=== PATIENT | female | born 1990 | race Caucasian/White ===

== ENCOUNTER 2016-05-09 17:43 | Emergency (ER) | payer MEDICAID, OTHER ==
[2016-05-09 17:53] VITALS: BP 122/81
[2016-05-09 18:42] LABS: Urine Bilirubin 1 mg/dl (NEGATIVE); Urine Blood Negative /ul (NEGATIVE); Urine Ketone Negative (NEGATIVE); Urine Nitrite Negative (NEGATIVE); Urine Protein Negative (NEGATIVE); Urine Specific Gravity 1.025 SP.GR. (1.005-1.010); Urine Urobilinogen Normal (NORMAL)
[2016-05-09 18:57] LABS: Urine Appearance Clear; Urine Bacteria TRACE; Urine Color Dark Yellow; Urine RBC None Seen /hpf (0-5); Urine WBC None Seen /hpf (0-5)
[2016-05-09] MEDS ORDERED: NORMAL SALINE 1,000 ML IV ONE (18:57)
[2016-05-09] MEDS ORDERED: ONDANSETRON HCL/PF 2 MG/ML VIAL IV ONE (18:57)
[2016-05-09] MEDS ORDERED: ONDANSETRON HCL/PF 2 MG/ML VIAL ONE (19:07)
--- NOTE | 2016-05-09 19:25 | ERNOTE ---
Medical Problem HPI - Narrative Date of Service: 05/09/16 - General Chief Complaint: Nausea/Vomiting Time Seen by Provider: 05/09/16 18:56 Source: patient, RN/MD, RN notes reviewed Exam Limitations: no limitations - Immun/Allergies/Home Medications Immunizations: IMMUNIZATION HX Immunizations Up to Date Yes Allergies/Adverse Reactions: Allergies azithromycin Allergy (Intermediate, Verified 05/09/16 17:53) Hives clindamycin Allergy (Intermediate, Verified 05/09/16 17:53) Hives erythromycin base [Erythromycin Base] Allergy (Intermediate, Verified 05/09/16 17:53) Itching penicillin G Allergy (Intermediate, Verified 05/09/16 17:53) Itching rash Sulfa (Sulfonamide Antibiotics) [Sulfa(Sulfonamide Antibiotics)] Adverse Reaction (Intermediate, Verified 05/09/16 17:53) Nausea states is violent upset stomach codeine [Codeine] Adverse Reaction (Mild, Verified 05/09/16 17:53) Nausea Home Medications: HOME MEDICATIONS ALPRAZolam [Xanax] 0.5 mg PO BID PRN 02/21/15 [Last Taken Unknown] Escitalopram Oxalate [Lexapro] 10 mg PO DAILY 02/21/15 [Last Taken 02/23/15] Bupropion HCl [Wellbutrin Sr] 100 mg PO DAILY 05/09/16 [Last Taken Unknown] Topiramate [Topamax] 25 mg PO BID 05/09/16 [Last Taken Unknown] - History of Present History Narrative: 25-year-old female ambulatory to the emergency department for nausea, vomiting and diarrhea that began yesterday. She initially presented to the walk-in clinic but was directed here after she reported feeling dehydrated. She denies sick contacts and has not taken anything for her symptoms. Date (Duration): 05/08/16 Review of Systems - Review of Systems Constitutional: Present: chills, fatigue, malaise. Absent: fever EYE: Present: no symptoms reported ENT: Present: no symptoms reported Respiratory: Absent: shortness of breath, cough Cardiology: Absent: chest pain, palpitations, syncope Gastrointestinal/Abdominal: Present: nausea, vomiting, diarrhea, abdominal pain , eating less, drinking less. Absent: constipation Genitourinary: Absent: frequency, dysuria Musculoskeletal: Present: muscle pain. Absent: neck pain Skin: Present: no symptoms reported Neurological: Present: dizziness/light-headedness. Absent: headache Endocrine: Present: no symptoms reported Hematologic/Lymphatic: Present: no symptoms reported Psych: Present: no symptoms reported - Patient's Past Medical History Patient History - Medical: Anxiety, Depression, Migraines Patient History - Cardiac/Respiratory: No pertinent hx Patient History - Cancer: No Hx of Cancer Patient History - Surgical Procedures: LMP (females 10-50): 1 month - Family History Mother Family History - Medical: Depression Family History - Cardiac/Respiratory: No pertinent hx - Social History Living Situations: home Alcohol Use: none Drug Use: none Physical Exam - Physical Exam General Appearance: Present: wd/wn, alert, mild distress, other - noted to be uncomfortable, disheveled Eye Exam: Normal inspection: bilateral Neck: Present: normal inspection, nontender, supple Respiratory: Present: no respiratory distress, normal breath sounds, no accessory muscle use, lungs clear Cardiovascular/Chest: Present: regular rate, rhythm, no murmur, normal peripheral pulses Gastrointestinal/Abdominal: Present: normal bowel sounds, nontender, nondistended, soft Back Exam: Present: normal inspection, no CVA tenderness Neurological Exam: Present: alert, oriented, normal mood/affect, no motor/ sensory deficits Skin Exam: Present: warm/dry, pallor ED Progress - Results and Orders Patient's Lab Results:: I have reviewed the patient's lab results. - Vital Signs Patient's Vital Signs:: I have reviewed the patient's vital signs. Vital Signs: Vital Signs 05/09/16 17:47 Temperature 36.4 C L Pulse Rate 97 Respiratory 12 Rate Blood Pressure 122/81 O2 Sat by Pulse 98 Oximetry - Progress/Reassessment Chief Complaint: Nausea/Vomiting Progress:: Improved Progress Note-Subjective: Verbalizes feeling better after IVF and Zofran. Departure - Departure Clinical Impression: Viral gastroenteritis Disposition: Home self-care Condition: Stable Instructions: Viral Gastroenteritis, Adult, [id number], Form - Excuse from Work, School, or Physical Activity Referrals: Cornelio Richards MD [Primary Care Provider] -
== END 2016-05-09 20:29 | disposition home or self-care (01) ==
LOC: ER 17:43
DX: A08.4 Viral intestinal infection, unspecified (principal)

== ENCOUNTER 2016-05-12 12:08 | Emergency (ER) | payer OTHER ==
[2016-05-12 12:18] VITALS: BP 123/78
--- NOTE | 2016-05-12 12:34 | ERNOTE ---
Medical Problem HPI - Narrative Date of Service: 05/12/16 - General Chief Complaint: General Assessment Time Seen by Provider: 05/12/16 12:24 Source: patient, RN notes reviewed, old records Exam Limitations: no limitations - Immun/Allergies/Home Medications Immunizations: IMMUNIZATION HX Immunizations Up to Date Yes History of Influenza Vaccine No Hx Pneumococcal Vaccination No Allergies/Adverse Reactions: Allergies azithromycin Allergy (Intermediate, Verified 05/09/16 17:53) Hives clindamycin Allergy (Intermediate, Verified 05/09/16 17:53) Hives erythromycin base [Erythromycin Base] Allergy (Intermediate, Verified 05/09/16 17:53) Itching penicillin G Allergy (Intermediate, Verified 05/09/16 17:53) Itching rash amoxicillin Allergy (Mild, Verified 05/12/16 12:19) Itching Sulfa (Sulfonamide Antibiotics) [Sulfa(Sulfonamide Antibiotics)] Adverse Reaction (Intermediate, Verified 05/09/16 17:53) Nausea states is violent upset stomach codeine [Codeine] Adverse Reaction (Mild, Verified 05/09/16 17:53) Nausea - History of Present History Narrative: 25 y/o female ambulatory to the ED for diarrhea. She was seen here by me on 05/09 with vomiting and diarrhea that began the day before. She was given a liter of NS and IV Zofran. She reports feeling good for about 24 hours, then she began having diarrhea again. Other household members have had similar symptoms. She is still having diarrhea today, but is tolerating oral intake otherwise. She reports that she would not have come back in, but she needed a work excuse. Date (Duration): 05/08/16 Review of Systems - Review of Systems Constitutional: Present: fatigue. Absent: fever, chills EYE: Present: no symptoms reported ENT: Present: no symptoms reported Respiratory: Absent: shortness of breath, cough Cardiology: Absent: chest pain, palpitations, syncope Gastrointestinal/Abdominal: Present: diarrhea. Absent: nausea, vomiting, abdominal pain Genitourinary: Absent: hematuria, decreased urinary output Musculoskeletal: Absent: back pain, muscle pain Skin: Present: no symptoms reported Neurological: Absent: headache, dizziness/light-headedness Endocrine: Present: no symptoms reported Hematologic/Lymphatic: Present: no symptoms reported Psych: Present: no symptoms reported - Patient's Past Medical History Patient History - Medical: Anxiety, Depression, Migraines, Other Patient History - Cardiac/Respiratory: No pertinent hx Patient History - Cancer: No Hx of Cancer Patient History - Surgical Procedures: Patient History - Other: None LMP (females 10-50): 1 month - Family History Mother Family History - Medical: Depression Family History - Cardiac/Respiratory: No pertinent hx - Social History Living Situations: home Smoking Status: Never smoker Alcohol Use: none Drug Use: none - Immunizations Immunizations Up to Date: Yes Hx Pneumococcal Vaccination: No History of Influenza Vaccine: No Physical Exam - Physical Exam General Appearance: Present: wd/wn, alert, no apparent distress, obese Eye Exam: Normal inspection: bilateral Respiratory: Present: no respiratory distress, normal breath sounds, no accessory muscle use, lungs clear Cardiovascular/Chest: Present: regular rate, rhythm, no murmur, normal peripheral pulses Gastrointestinal/Abdominal: Present: normal bowel sounds, nontender, nondistended, soft Extremity Exam: Present: normal inspection, no edema Neurological Exam: Present: alert, oriented, normal mood/affect, no motor/ sensory deficits Skin Exam: Present: normal color, warm/dry ED Progress - Vital Signs Patient's Vital Signs:: I have reviewed the patient's vital signs. Vital Signs: Vital Signs 05/12/16 12:14 Temperature 35.9 C L Pulse Rate 69 Respiratory 18 Rate Blood Pressure 123/78 O2 Sat by Pulse 97 Oximetry - Progress/Reassessment Chief Complaint: General Assessment Progress:: Unchanged Plan - Plan Plan: Work excuse given Departure - Departure Clinical Impression: Viral gastroenteritis, Encounter to obtain excuse from work Disposition: Home self-care Condition: Good Instructions: Form - Excuse from Work, School, or Physical Activity, Diarrhea, Adult, [id number] Referrals: Cornelio Richards MD [Primary Care Provider] -
== END 2016-05-12 12:33 | disposition home or self-care (01) ==
LOC: ER 12:08
DX: A08.4 Viral intestinal infection, unspecified (principal)

== ENCOUNTER 2016-07-11 10:09 | Emergency (ER) | payer OTHER ==
--- NOTE | 2016-07-11 11:59 | ERNOTE ---
ER Female HPI Stated Complaint: VAGINAL BLEEDING Presenting Symptoms: vaginal bleeding Time Seen by Provider: 07/11/16 11:49 Source: patient Immunizations: IMMUNIZATION HX Immunizations Up to Date Yes History of Influenza Vaccine No Hx Pneumococcal Vaccination No Allergies/Adverse Reactions: Allergies azithromycin Allergy (Intermediate, Verified 05/09/16 17:53) Hives clindamycin Allergy (Intermediate, Verified 05/09/16 17:53) Hives erythromycin base [Erythromycin Base] Allergy (Intermediate, Verified 05/09/16 17:53) Itching penicillin G Allergy (Intermediate, Verified 05/09/16 17:53) Itching rash amoxicillin Allergy (Mild, Verified 05/12/16 12:19) Itching Sulfa (Sulfonamide Antibiotics) [Sulfa(Sulfonamide Antibiotics)] Adverse Reaction (Intermediate, Verified 05/09/16 17:53) Nausea states is violent upset stomach codeine [Codeine] Adverse Reaction (Mild, Verified 05/09/16 17:53) Nausea Home Medications: HOME MEDICATIONS NK [No Home Medication] 07/11/16 [Last Taken Unknown] - History of Present Illness Narrative: Patient was seen yesterday and the OB office they're unable to obtain a heartbeat on the fetus she was scheduled for an appointment tomorrow with them and they were going to repeat the ultrasound, however she passed a large amount of blood this morning and think probably she had a miscarriage and when she called the office they told her to come to the emergency department. Timing: Present: resolved prior to arrival Quality: Present: cramping Review of Systems - Review of Systems Constitutional: Present: See HPI, other - possible miscarriage as patient feels she passed tissue as well as large amounts of blood. EYE: Present: no symptoms reported ENT: Present: no symptoms reported Respiratory: Present: no symptoms reported Cardiology: Present: no symptoms reported Gastrointestinal/Abdominal: Present: no symptoms reported Genitourinary: Present: no symptoms reported Musculoskeletal: Present: no symptoms reported Skin: Present: no symptoms reported Neurological: Present: no symptoms reported Endocrine: Present: no symptoms reported Hematologic/Lymphatic: Present: no symptoms reported Psych: Present: no symptoms reported - Patient's Past Medical History Patient History - Medical: Anxiety, Depression, Migraines, Other Patient History - Cardiac/Respiratory: No pertinent hx Patient History - Cancer: No Hx of Cancer Patient History - Surgical Procedures: Patient History - Other: None - Family History Mother Family History - Medical: Depression Family History - Cardiac/Respiratory: No pertinent hx - Social History Living Situations: home Abuse History: No History of abuse Psych History: No pertinent hx Alcohol Use: none Drug Use: none - Immunizations Immunizations Up to Date: Yes Hx Pneumococcal Vaccination: No History of Influenza Vaccine: No Physical Exam - Physical Exam General Appearance: Present: wd/wn, alert, mild distress Eye Exam: Normal inspection: bilateral, PERRL: bilateral Ears, Nose, Throat: Present: normal ENT inspection, H, normal pharynx Neck: Present: normal inspection, nontender Respiratory: Present: no respiratory distress, normal breath sounds, no accessory muscle use, chest nontender, lungs clear Cardiovascular/Chest: Present: regular rate, rhythm, no murmur, normal peripheral pulses Gastrointestinal/Abdominal: Present: normal bowel sounds, nontender, nondistended, soft, no organomegaly Rectal Exam: Present: deferred Back Exam: Present: normal inspection, normal range of motion Extremity Exam: Present: normal inspection, non-tender, no edema, normal range of motion Neurological Exam: Present: alert, oriented, normal mood/affect Skin Exam: Present: normal color, warm/dry Lymphatic Exam: Present: no adenopathy Pelvic Exam: Present: deferred - patient declined a pelvic examination at this juncture and she knows she is going to get 1 tomorrow and just had one yesterday as well. ED Progress - Results and Orders Patient's Lab Results:: I have reviewed the patient's lab results. - Vital Signs Patient's Vital Signs:: I have reviewed the patient's vital signs. Vital Signs: Vital Signs 07/11/16 10:32 Temperature 36.8 C Pulse Rate 80 Respiratory 18 Rate Blood Pressure 101/64 O2 Sat by Pulse 98 Oximetry - CT/Ultrasound CT/Ultrasound Narrative: Pelvic ultrasound was reviewed and I also went over it with the patient and Dr. Salazar - Progress/Reassessment Chief Complaint: Genitourinary Problem Plan - Plan Plan: Patient will keep her appointment with her OB appointment tomorrow and they will determine any further tests needed up to and including a D&C. Departure Clinical Impression: Miscarriage - Departure Disposition: Home self-care Condition: Good Instructions: Miscarriage, [id number]
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
[2016-07-11 12:39] LABS: Hematocrit 39.9 % (37.0-47.0); Hemoglobin 13.2 gm/dL (12.5-16.0); Mean Cell Volume 87.5 fl (78-100); Mean Corpuscular Hemoglobin 28.9 pg (27-31); Mean Corpuscular Hgb Conc 33.1 g/dl (32-36); Mean Platelet Volume 9.8 fl (6.0-9.5); Neutrophil # 4.8 K/mm3 (1.3-6.0); Neutrophil % 61.4 % (42-75.0); Platelet Count 295 K/mm3 (150-450); Red Blood Count 4.56 M/mm3 (4.2-5.4); Red Cell Distribution Width 11.9 % (11.5-14.0); White Blood Count 7.8 K/mm3 (4.0-10.5)
[2016-07-11 12:46] LABS: Prothrombin Time (Patient) 10.2 Seconds (9.4-11.4)
[2016-07-11 12:48] LABS: INR 0.98 INR (0.90-1.10)
[2016-07-11 12:53] LABS: Albumin * 3.7 gm/dl (3.4-5.0); Anion Gap 12.3 mmol/L (6.8-13.8); BUN/Creatinine Ratio 8.9 (9.0-21.6); Bilirubin, Total 0.6 mg/dL (0.0-1.1); Ca. Corrected For Albumin 9.1 mg/dL (8.4-10.2); Calcium * 9.2 mg/dL (7.9-10.9); Carbon Dioxide 28.8 mmol/L (24-32.6); Potassium 4.1 mmol/L (3.4-4.6); Total Protein 7.7 gm/dL (6.2-8.2)
[2016-07-11 13:40] VITALS: BP 117/72
== END 2016-07-11 13:27 | disposition home or self-care (01) ==
LOC: ER 10:09
DX: O03.9 Complete or unspecified spontaneous abortion without complication (principal); N93.9 Abnormal uterine and vaginal bleeding, unspecified

== ENCOUNTER 2016-11-25 00:09 | Emergency (ER) | payer OTHER ==
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
[2016-11-25] MEDS ORDERED: HYDROcodone/ACETAMINOPHEN 1 EACH TABLET PO ONE (01:29)
[2016-11-25] MEDS ORDERED: HYDROcodone/ACETAMINOPHEN 1 EACH TABLET ONE (01:37)
[2016-11-25] MEDS ORDERED: ACETAMINOPHEN 500 MG TABLET PO ONE (01:41)
[2016-11-25 03:59] VITALS: BP 112/77
== END 2016-11-25 02:45 | disposition home or self-care (01) ==
LOC: ER 00:09
DX: S80.211A Abrasion, right knee, initial encounter (principal); S50.811A Abrasion of right forearm, initial encounter; Y08.89XA Assault by other specified means, initial encounter; Y93.9 Activity, unspecified; Y92.810 Car as the place of occurrence of the external cause; Z33.1 Pregnant state, incidental; Z3A.15 15 weeks gestation of pregnancy; F41.8 Other specified anxiety disorders